=== PATIENT | male | born 1975 | race Caucasian/White ===

== ENCOUNTER 2017-11-26 23:47 | Emergency (ER) | payer SELFPAY ==
[~2017-11-26] VITALS: Ht 182.9 cm; Wt 78.0 kg
[~2017-11-26 23:47] MED LIST: BACT800T5 PO; CEPH500C3 PO; DILA8TAB4 PO; DOXY100T PO; OXYC30TA PO; PROM25SU8 PO; SOMA350T PO; SULF1TAB47 PO; TERB1%T TOP; XANA2TAB2 PO
[2017-11-26] MEDS ORDERED: SODIUM CHLOR 0.9% 1000 ML INJ 1,000 ML IV SCH ×2 (23:50)
[2017-11-26 23:51] VITALS: BP 123/72; PULSE 104; RESP 22; TEMP 98.2; O2SAT 100
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
[2017-11-27] MEDS ORDERED: LORazepam 2 MG/ML VIAL IV PUSH ONE
[2017-11-27 00:20] LABS: AUTOMATED NEUTROPHIL # 10.8 TH/MM3 (1.8-7.7); BASOPHIL # 0.1 TH/MM3 (0-0.2); BASOPHIL % 0.5 % (0.0-2.0); EOSINOPHIL % 0.1 % (0.0-4.0); HEMATOCRIT 38.9 % (39.0-51.0); HEMOGLOBIN 13.5 GM/DL (13.0-17.0); LYMPH % 14.6 % (9.0-44.0); LYMPHOCYTE # 2.1 TH/MM3 (1.0-4.8); MEAN CORPUSCULAR HEMOGLOBIN 31.1 PG (27.0-34.0); MEAN CORPUSCULAR HGB CONC 34.6 % (32.0-36.0); MEAN PLATELET VOLUME 7.7 FL (7.0-11.0); MONO % 10.9 % (0.0-8.0); MONOCYTE # 1.6 TH/MM3 (0-0.9); NEUT % 73.9 % (16.0-70.0); PLATELET COUNT 293 TH/MM3 (150-450); RED BLOOD COUNT 4.32 MIL/MM3 (4.50-5.90); RED CELL DISTRIBUTION WIDTH 12.9 % (11.6-17.2); WHITE BLOOD COUNT 14.7 TH/MM3 (4.0-11.0)
--- NOTE | 2017-11-27 00:28 | RADRPT ---
EXAM DATE: 11/27/2017 12:26 AM EDT AGE/SEX: 42 years / Male INDICATIONS: Cough and syncopal episode. Possible OD. CLINICAL DATA: This is the patient's initial encounter. Patient reports that signs and symptoms have been present for 1 day and indicates a pain score of Nonresponsive. MEDICAL/SURGICAL HISTORY: Non-responsive. Non-responsive. COMPARISON: No prior exams available for comparison. FINDINGS: A single AP view of the chest demonstrates the lungs to be symmetrically aerated without evidence of mass, infiltrate or effusion. The cardiomediastinal contours are unremarkable. Osseous structures a re intact. CONCLUSION: Negative examination. Electronically signed by: Varinder Abernathy MD 11/27/2017 12:27 AM EDT
[2017-11-27 00:43] LABS: ALBUMIN 3.4 GM/DL (3.4-5.0); ALT (GPT) 154 U/L (12-78); AST (GOT) 196 U/L (15-37); BICARBONATE 19.8 MEQ/L (21.0-32.0); BLOOD UREA NITROGEN 18 MG/DL (7-18); CALCIUM 8.7 MG/DL (8.5-10.1); CHLORIDE 101 MEQ/L (98-107); CREATININE 1.43 MG/DL (0.60-1.30); GLOMERULAR FILTRATION RATE 54 ML/MIN (>89); GLUCOSE,RANDOM 81 MG/DL (74-106); MAGNESIUM 1.6 MG/DL (1.5-2.5); SODIUM (NA) 136 MEQ/L (136-145)
[2017-11-27 00:57] LABS: ALKALINE PHOSPHATASE 89 U/L (45-117); TOTAL BILIRUBIN ADULT 1.6 MG/DL (0.2-1.0); TOTAL PROTEIN 8.3 GM/DL (6.4-8.2)
--- NOTE | 2017-11-27 01:15 | RADRPT ---
EXAM DATE: 11/27/2017 1:07 AM EDT AGE/SEX: 42 years / Male INDICATIONS: Cephalgia after drug use. CLINICAL DATA: This is the patient's initial encounter. Patient reports that signs and symptoms have been present for 1 day and indicates a pain score of 5/10. MEDICAL/SURGICAL HISTORY: None. None. RADIATION DOSE: 56.35 CTDI (mGy) COMPARISON: No prior exams available for comparison. TECHNIQUE: CT of the head without contrast. Using automated exposure control and adjustment of the mA and/or kV according to patient size, radiation dose was kept as low as reasonably achievable to ob tain optimal diagnostic quality images. DICOM format image data is available electronically for revi ew and comparison. FINDINGS: Cerebrum: The ventricles are normal for age. No evidence of midline shift, mass lesion, hemorrhage or acute infarction. No extraaxial fluid collections are seen. Posterior Fossa: The cerebellum and brainstem are intact. The 4th ventricle is midline. The cerebe llopontine angle is unremarkable. Extracranial: The visualized portion of the orbits is intact. Skull: The calvaria is intact. No evidence of skull fracture. Some fluid in the right mastoidal air cells CONCLUSION: 1. Negative CT Head non contrast except for trace fluid in the right mastoid air cells. Electronically signed by: Varinder Abernathy MD 11/27/2017 1:13 AM EDT
[2017-11-27 01:28] VITALS: BP 114/60; PULSE 93; RESP 20; O2SAT 98
[2017-11-27 06:32] VITALS: BP 118/64; PULSE 78; RESP 14; O2SAT 97
[2017-11-27 08:57] VITALS: BP 116/69
--- NOTE | 2017-11-27 18:27 | EKG ---
Date Performed: 11/27/2017 Time Performed: 00:14:34 PTAGE: 42 years EKG: Sinus rhythm WITH SHORT AR INTERVAL BORDERLINE ECG Since the PREVIOUS TRACING , no significant change noted PREVIOUS TRACIN06/04/2014 03.36 DOCTOR: Franchesca Choi Interpretating Date/Time 11/27/2017 18:25:12
== END 2017-11-27 08:59 | disposition home or self-care (01) ==
LOC: NEPD 23:47
DX: E86.0 Dehydration (principal); N17.9 Acute kidney failure, unspecified; M62.82 Rhabdomyolysis; T44.905A Adverse effect of unspecified drugs primarily affecting the autonomic nervous system, initial encounter; R94.31 Abnormal electrocardiogram [ECG] [EKG]; R00.0 Tachycardia, unspecified; R51 Headache; Y04.0XXA Assault by unarmed brawl or fight, initial encounter; F12.90 Cannabis use, unspecified, uncomplicated
CPT/HCPCS: 70450; 71045; 80053; 82550; 82552; 83605; 83735; 85025; 93005; 96361; 96374; 99285; J2060; J7030

== ENCOUNTER 2017-12-02 06:56 | Emergency (ER) | payer SELFPAY ==
[~2017-12-02] VITALS: Ht 182.9 cm; Wt 90.9 kg
[2017-12-02 07:00] VITALS: BP 131/65; PULSE 90; RESP 16; TEMP 98.6; O2SAT 98
[2017-12-02] MEDS ORDERED: BACT800T5 PO (07:24)
[2017-12-02] MEDS ORDERED: CEPH-460 PO (07:24)
[2017-12-02] MEDS ORDERED: IBUP1TAB7 PO (07:24)
--- NOTE | 2017-12-02 07:24 | PD ---
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 He also notes several other small pustular areas across the skin. He endorses chills, has not measured a fever at home. He endorses nausea, denies vomiting. He denies history of MRSA. He denies chronic health problems, takes no daily medications. No treatment attempted at home. PFSH Past Medical History Autoimmune Disease: No Anxiety: No Depression: No Heart Rhythm Problems: No Cancer: No High Cholesterol: No Chemotherapy: No Chest Pain: Yes Congestive Heart Failure: No Diabetes: No Diminished Hearing: No Endocrine: No Genitourinary: No Immune Disorder: No Musculoskeletal: No Neurologic: No Psychiatric: No Reproductive: No Respiratory: No Immunizations Current: Yes Radiation Therapy: No Sickle Cell Disease: No Thyroid Disease: No Past Surgical History Pacemaker: No Social History Alcohol Use: Yes Tobacco Use: Yes Substance Use: Yes (MARIJUANA) Allergies-Medications (Allergen,Severity, Reaction): Coded Allergies: *MDRO Multi-Drug Resistant Organism (Verified Adverse Reaction, Unknown, ) MRSA hand wound 01/2015. Reported Meds & Prescriptions Reported Meds & Active Scripts Active Ibuprofen 800 Mg Tab 800 Mg PO Q8H PRN Keflex (Cephalexin) 500 Mg Cap 500 Mg PO Q6H 7 Days Bactrim DS (Sulfamethoxazole-Trimethoprim) 800-160 Mg Tab 1 Tab PO BID Review of Systems Except as stated in HPI: all other systems reviewed are Neg Physical Exam Narrative GENERAL: Well-nourished, well-developed white male no acute distress. SKIN: Focused skin assessment warm/dry. Multiple tattoos noted. SKIN: There is an indurated area in the right axilla which measures about 3 cm in diameter. It is fluctuant but there is no pointing or drainage. There is a zone of inflammation around it but no lymphangitis. HEAD: Normocephalic. EYES: No scleral icterus. No injection or drainage. NECK: Supple, trachea midline. No JVD or lymphadenopathy. CARDIOVASCULAR: Regular rate and rhythm without murmurs, gallops, or rubs. RESPIRATORY: Breath sounds equal bilaterally. No accessory muscle use. GASTROINTESTINAL: Abdomen soft, non-tender, nondistended. MUSCULOSKELETAL: No cyanosis, or edema. BACK: Nontender without obvious deformity. No CVA tenderness. Data Data Last Documented VS Vital Signs Date Time Temp Pulse Resp B/P (MAP) Pulse Ox O2 Delivery O2 Flow Rate FiO2 12/02/17 07:00 98.6 90 16 131/65 (87) 98 Orders Orders Wound Culture And Gram Stain (12/02/17 07:20) Ibuprofen (Motrin) (12/02/17 07:30) Lidocaine 1% Inj (50 Ml) (Xylocaine 1% I (12/02/17 07:30) Ed Discharge Order (12/02/17 08:00) [facility] Medical Decision Making Medical Screen Exam Complete: Yes Emergency Medical Condition: Yes Differential Diagnosis Furuncle versus carbuncle versus abscess versus cellulitis versus MRSA versus other Narrative Course 42-year-old male with history of IVDA presents to the ED for evaluation of 6 day history of abscess in the right axilla. Patient afebrile on arrival. Exam consistent with abscess. Reviewed the patient's record, he has a history of MRSA. I&D abscess was performed. Please see my procedure note for details. Patient's prescribed Bactrim, Keflex, ibuprofen. He was given detailed wound care instructions, instructed to return to the ED in 2 days for follow-up. He indicated understanding of the instructions and is agreeable to care plan. He stable and discharged home. Procedures Procedure Narrative INCISION AND DRAINAGE OF ABSCESS: The area was prepped and was sterilely draped. A subcutaneous wheal of 1 % Xylocaine with a total number 3 mL was used to anesthetize the area properly. A number 11 scalpel was used to make a 1 -cm incision across the area of the abscess. The abscess was drained, complex loculations were broken down, and irrigated with normal saline. Cultures were obtained. Sterile dressing applied. Patient advised to return for wound recheck two days. Diagnosis Primary Impression: Abscess of right axilla Referrals: [facility] Additional Instructions: Rest, hydrate. Do not change the dressing for 24-48 hours. Take the antibiotics as they are prescribed, even if your symptoms resolved. 800 mg ibuprofen up to 3 times a day, as needed for pain. Warm, moist compresses applied to the area a few times a day for 10-15 minutes may also help to reduce her symptoms. Return to the ED in 2 days for packing removal and wound evaluation Follow-up with the [facility]. Return to the ED for any urgent or emergent medical condition. Med/Other Pt SpecificInfo: Prescription(s) given Scripts Ibuprofen (Ibuprofen) 800 Mg Tab 800 MG PO Q8H Y for Pain/Inflammation, #15 TAB 0 Refills Prov: Freda Jin DO 12/02/17 Cephalexin (Keflex) 500 Mg Cap 500 MG PO Q6H for Infection for 7 Days, #28 CAP 0 Refills Prov: Freda Jin DO 12/02/17 Sulfamethoxazole-Trimethoprim (Bactrim DS) 800-160 Mg Tab 1 TAB PO BID for Infection, #14 TAB 0 Refills Prov: Freda Jin DO 12/02/17 Disposition: 01 DISCHARGE HOME Condition: Stable Kadi Paniagua Dec 02, 2017 07:24
[2017-12-02] MEDS ORDERED: LIDOCAINE HCL 1% 50 ML VIAL INFIL ONE (07:30)
[2017-12-02] MEDS ORDERED: IBUPROFEN 800 MG TAB PO ONE (07:30)
== END 2017-12-02 08:18 | disposition home or self-care (01) ==
LOC: NEPD 06:56
DX: L02.411 Cutaneous abscess of right axilla (principal); B95.62 Methicillin resistant Staphylococcus aureus infection as the cause of diseases classified elsewhere; R68.83 Chills (without fever); Z86.14 Personal history of Methicillin resistant Staphylococcus aureus infection; Z72.0 Tobacco use
CPT/HCPCS: 10060; 86403; 87070; 87186

== ENCOUNTER 2017-12-18 15:47 | Observation (INO) ==
[2017-12-18] MEDS ORDERED: Vancomycin Inj 1,000 MG in Sodium Chlor 0.9% Inj 250 ML IV.SIG ONE (22:41)
--- NOTE | 2017-12-18 22:48 | ED ---
HPI General Chief complaint: Skin/Abscess/Foreign Body Stated complaint: Recheck underarm pain Time Seen by Provider: 12/18/17 22:03 Source: patient History of Present Illness MD complaint: abscess/boil and lesion Onset (ago): day(s) Location: LUE, RUE, L hand, R hand, LLE and RLE Severity: moderate Severity scale (1-10): 8 Quality: aching, dull and constant Pain Consistency: constant Relieving factors: none Associated symptoms: denies other symptoms Treatments prior to arrival: antibiotic (Patient was given an antibiotic prescription when he had an I&D of an abscess in his axilla on the right which was MRSA positive however patient says the prescription got wet he did not fill it and he is homeless and has no money at this time to fill the antibiotic) Related Data Home Medications Medication Instructions Recorded Confirmed No Known Home Medications 12/18/17 12/18/17 Allergies Allergy/AdvReac Type Severity Reaction Status Date / Time *MDRO Multi-Drug Resistant AdvReac Unknown Uncoded 11/26/17 23:50 Organism Review of Systems ROS Unobtainable All other systems reviewed negative except as stated in HPI [facility] Social History Social History Substance History: Active Abuse Second Hand Smoke Exposure: No Smoking Status: Former smoker How Often Do You Have a Drink Containing Alcohol: Never Recent Travel [facility] within the Last 8 Weeks: No Recent Out of Country Travel within the Last 8 Weeks: No Substance Abuse Detail Methamphetamine: Substance Use Status: Early Remission Route Used Substance Abuse: Intravenously Substance Frequency: DAILY Reason for Use: Fit In Immunization History Tetanus Immunization: Unsure Hx Influenza Vaccine This Season: No Exam Narrative Exam Narrative: GENERAL: pt has scab to scott and multiple lumps and scabs to arms and legs SKIN: Focused skin assessment warm/dry. Multiple abscess and lumps and swelling to the forearms and legs HEAD: Atraumatic. Normocephalic. EYES: Pupils equal and round. No scleral icterus. No injection or drainage. ENT: No nasal bleeding or discharge. Mucous membranes pink and moist. NECK: Trachea midline. No JVD. CARDIOVASCULAR: Regular rate and rhythm. No murmur appreciated. RESPIRATORY: No accessory muscle use. Clear to auscultation. Breath sounds equal bilaterally. GASTROINTESTINAL: Abdomen soft, non-tender, nondistended. Hepatic and splenic margins not palpable. MUSCULOSKELETAL: No obvious deformities. No clubbing. No cyanosis. No edema. NEUROLOGICAL: Awake and alert. No obvious cranial nerve deficits. Motor grossly within normal limits. Normal speech. PSYCHIATRIC: Appropriate mood and affect; insight and judgment normal. Course Hospital Course: I evaluated patient he has MRSA positive from a recent I&D I give him Vanco and Levaquin as I review the microbiology showing the resistance of the MRSA including ceftriaxone and penicillins and beta-lactamase Levaquin and Vanco will cover I admit him for further eval wound care possible ID for his skin infections Initial Documented Vital Signs Temperature 98.4 F 12/18/17 15:59 Pulse Rate 87 12/18/17 15:59 Respiratory Rate 16 12/18/17 15:59 Blood Pressure 126/74 12/18/17 15:59 Pulse Oximetry 98 12/18/17 15:59 Last Documented Vital Signs Temperature 98.4 F 12/18/17 15:59 Pulse Rate 83 12/19/17 02:10 Respiratory Rate 14 12/19/17 02:10 Blood Pressure 127/66 12/19/17 02:10 Pulse Oximetry 100 12/19/17 02:10 Medical Decision Making Lab Data Result diagrams: 12/18/17 23:10 12/18/17 23:10 Lab Results 12/18/17 12/18/17 12/19/17 Range/Units 23:10 23:10 01:36 WBC 6.6 (4.0-11.0) th/mm3 RBC 3.68 L (4.50-5.90) mil/mm3 Hgb 11.5 L (13.0-17.0) gm/dL Hct 33.7 L (39.0-51.0) % MCV 91.7 (80.0-100.0) fL MCH 31.3 (27.0-34.0) pg MCHC 34.2 (32.0-36.0) % RDW 13.4 (11.6-17.2) % Plt Count 154 (150-450) th/mm3 MPV 7.6 (7.0-11.0) fL Neut % (Auto) 59.7 (16.0-70.0) % Lymph % (Auto) 24.3 (9.0-44.0) % [place] % (Auto) 13.6 H (0.0-8.0) % Eos % (Auto) 1.8 (0.0-4.0) % Baso % (Auto) 0.6 (0.0-2.0) % Neut # (Auto) 3.9 (1.8-7.7) th/mm3 Lymph # (Auto) 1.6 (1.0-4.8) th/mm3 [place] # (Auto) 0.9 (0.0-0.9) th/mm3 Eos # (Auto) 0.1 (0.0-0.4) th/mm3 Baso # (Auto) 0.0 (0.0-0.2) th/mm3 WBC Differential . Differential Comment Auto diff final Sodium 136 (136-145) meq/L Potassium 3.8 (3.5-5.1) meq/L Chloride 100 (98-107) meq/L Carbon Dioxide 28.7 (21.0-32.0) meq/L Anion Gap 7 (5-15) meq/L BUN 12 (7-18) mg/dL Creatinine 0.93 (0.60-1.30) mg/dL Random Glucose 114 H (74-106) mg/dL Calcium 8.6 (8.5-10.1) mg/dL Total Bilirubin 2.9 H (0.2-1.0) mg/dL AST 1704 H (15-37) U/L ALT 1364 H (12-78) U/L Alkaline Phosphatase 208 H (45-117) U/L Total Protein 7.8 (6.4-8.2) g/dL Albumin 2.7 L (3.4-5.0) g/dL Urine Color (Yellw/Straw) Urine Clarity (Clear) Urine pH (5.0-8.5) Ur Specific [place] (1.002-1.035) Urine Protein (Neg-Trace) mg/dL Urine Glucose (UA) (Negative) mg/dL Urine Ketones (Negative) mg/dL Urine Occult Blood (Negative) Urine Nitrate (Negative) Urine Bilirubin (Negative) Urine Ictotest (Negative) Urine Urobilinogen (Less than 2) mg/dL Ur Leukocyte Esterase (Negative) Urine RBC (0-3) /hpf Urine WBC (0-5) /hpf Ur Squamous Epith Cells (0-5) /hpf Urine Mucus (Occasional) /lpf Micro UA Comment Urine Culture Comments Urine Opiates Screen Pos H (Neg) Ur Barbiturates Screen Neg (Neg) Ur Amphetamines Screen Pos H (Neg) U Benzodiazepines Scrn Neg (Neg) Urine Cocaine Screen Neg (Neg) U Cannabinoids Screen Pos H (Neg) 12/19/17 Range/Units 01:36 WBC (4.0-11.0) th/mm3 RBC (4.50-5.90) mil/mm3 Hgb (13.0-17.0) gm/dL Hct (39.0-51.0) % MCV (80.0-100.0) fL MCH (27.0-34.0) pg MCHC (32.0-36.0) % RDW (11.6-17.2) % Plt Count (150-450) th/mm3 MPV (7.0-11.0) fL Neut % (Auto) (16.0-70.0) % Lymph % (Auto) (9.0-44.0) % [place] % (Auto) (0.0-8.0) % Eos % (Auto) (0.0-4.0) % Baso % (Auto) (0.0-2.0) % Neut # (Auto) (1.8-7.7) th/mm3 Lymph # (Auto) (1.0-4.8) th/mm3 [place] # (Auto) (0.0-0.9) th/mm3 Eos # (Auto) (0.0-0.4) th/mm3 Baso # (Auto) (0.0-0.2) th/mm3 WBC Differential Differential Comment Sodium (136-145) meq/L Potassium (3.5-5.1) meq/L Chloride (98-107) meq/L Carbon Dioxide (21.0-32.0) meq/L Anion Gap (5-15) meq/L BUN (7-18) mg/dL Creatinine (0.60-1.30) mg/dL Random Glucose (74-106) mg/dL Calcium (8.5-10.1) mg/dL Total Bilirubin (0.2-1.0) mg/dL AST (15-37) U/L ALT (12-78) U/L Alkaline Phosphatase (45-117) U/L Total Protein (6.4-8.2) g/dL Albumin (3.4-5.0) g/dL Urine Color Melani (Yellw/Straw) Urine Clarity Clear (Clear) Urine pH 5.0 (5.0-8.5) Ur Specific [place] 1.026 (1.002-1.035) Urine Protein 30 H (Neg-Trace) mg/dL Urine Glucose (UA) Negative (Negative) mg/dL Urine Ketones Negative (Negative) mg/dL Urine Occult Blood Negative (Negative) Urine Nitrate Negative (Negative) Urine Bilirubin Small H (Negative) Urine Ictotest Positive H (Negative) Urine Urobilinogen 4 or greater (Less than 2) mg/dL Ur Leukocyte Esterase Negative (Negative) Urine RBC 1 (0-3) /hpf Urine WBC 1 (0-5) /hpf Ur Squamous Epith Cells <1 (0-5) /hpf Urine Mucus Few H (Occasional) /lpf Micro UA Comment Culture not ind Urine Culture Comments Culture not ind Urine Opiates Screen (Neg) Ur Barbiturates Screen (Neg) Ur Amphetamines Screen (Neg) U Benzodiazepines Scrn (Neg) Urine Cocaine Screen (Neg) U Cannabinoids Screen (Neg) Discharge Plan Discharge Disposition Patient Disposition: 30 Still Patient Discharge Details Diagnosis: Cellulitis and abscess of leg Physicians Team ED Provider: Jhon Knott Primary Care Provider: Primary Care Chelsea Powell Attending Provider: Reshma Srinivasan Status ED Status: Admitted Observation Patient
[2017-12-18 23:34] LABS: Baso % (Auto) 0.6 % (0.0-2.0); Eos # (Auto) 0.1 th/mm3 (0.0-0.4); Eos % (Auto) 1.8 % (0.0-4.0); Hematocrit 33.7 % (39.0-51.0); Hemoglobin 11.5 gm/dL (13.0-17.0); Lymph # (Auto) 1.6 th/mm3 (1.0-4.8); Lymph % (Auto) 24.3 % (9.0-44.0); Mean Corpuscular HGB Conc 34.2 % (32.0-36.0); Mean Corpuscular Hemoglobin 31.3 pg (27.0-34.0); Mean Corpuscular Volume 91.7 fL (80.0-100.0); Mean Platelet Volume 7.6 fL (7.0-11.0); Mono # (Auto) 0.9 th/mm3 (0.0-0.9); Mono % (Auto) 13.6 % (0.0-8.0); Neut # (Auto) 3.9 th/mm3 (1.8-7.7); Neut % (Auto) 59.7 % (16.0-70.0); Platelet Count 154 th/mm3 (150-450); Red Blood Count 3.68 mil/mm3 (4.50-5.90); Red Cell Distribution Width 13.4 % (11.6-17.2); White Blood Count 6.6 th/mm3 (4.0-11.0)
[2017-12-18 23:48] LABS: Albumin 2.7 g/dL (3.4-5.0); Anion Gap 7 meq/L (5-15); Blood Urea Nitrogen 12 mg/dL (7-18); Calcium 8.6 mg/dL (8.5-10.1); Carbon Dioxide 28.7 meq/L (21.0-32.0); Chloride 100 meq/L (98-107); Glucose,Random 114 mg/dL (74-106); Potassium 3.8 meq/L (3.5-5.1); Sodium 136 meq/L (136-145)
[2017-12-18 23:55] LABS: Alanine Aminotransferase 1364 U/L (12-78); Alkaline Phosphatase 208 U/L (45-117); Aspartate Aminotransferase 1704 U/L (15-37); Total Protein 7.8 g/dL (6.4-8.2)
[2017-12-19] MEDS ORDERED: Bisacodyl 10 MG Supp RECTAL PRN (00:51)
[2017-12-19] MEDS ORDERED: Vancomycin Consult Pharmacy 1 EACH OTHER SCH (01:00)
[2017-12-19] MEDS: Sod Chloride 0.9% Inj 1,000 ML IV.CONT SCH ×2 (01:33→16:28)
--- NOTE | 2017-12-19 01:49 | P.HPIM ---
History of Present Illness Primary Care Physician: No Primary Care Physician History of Present Illness: This is a 42-year-old male with a PMH of IVDU who presented to the ER w/ multiple abscesses. Previous ER presentation for same on 12/02/17, s/p I&D w/ cultures +MRSA, d/c'd w/ Bactrim and Keflex however non-compliant w/ antibiotics. States he [facility] and relapsed, started using IV drugs, noted RUE abscess after injecting, followed by multiple other abscesses. On arrival, BP 136/80, HR 83, O2 sat 95% on RA, Afebrile. CBC essentially unremarkable. Chemistry unremarkable except for elevated LFTs, AST 1704, ALT 1364, ALP 208, increased in comparison to previous labs from 11/27/2017. S/p Vanc/Levaquin in ER. - Diagnosis (1) Abscess (2) IVDU (intravenous drug user) (3) Elevated LFTs Inpatient Certification: I certify that the inpatient services were ordered in accordance with Medicare regulations governing the order. This includes certification that hospital inpatient services are reasonable and necessary and in the case of services not specified as inpatient-only under 42 CFR 419.22(n), that they are appropriately provided as inpatient services in accordance to with the 2-midnight benchmark under 43 CFR 412.3(e) Review of Systems All other systems reviewed negative except as stated in HPI PMFSH - History History Provided By: Patient - Tobacco History Second Hand Smoke Exposure: No Smoking Status: Former smoker - Alcohol History How Often Do You Have a Drink Containing Alcohol: Never - Substance Use History Substance History: 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 Route Used: Intravenously Frequency: DAILY Reason for Use: Fit In - Travel History Recent Travel in the [place] Within the Last 8 Weeks: No Recent Travel Out of the Country Within the Last 8 Weeks: No - Immunization History Tetanus Immunization: Unsure Hx Influenza Vaccine This Season: No Medications and Allergies Active Medications: Active Medications Al Hydroxide/Mg Hydroxide (Milk Of Magnmariaelena Liq) 30 ml PO Q12H PRN PRN Reason: Mild Constipation Bisacodyl (Dulcolax Supp) 10 mg RECTAL DAILY PRN PRN Reason: SEVERE CONSITIPATION Cefepime HCl 1,000 mg/ Sodium (Chloride) 100 mls @ 200 mls/hr IV.SIG Q12H SHANELL Sodium Chloride (Ns Inj) 1,000 mls @ 100 mls/hr IV.CONT .Q10H [facility] Last Admin: 12/19/17 01:33 Dose: 100 mls/hr Pharmacy Profile Note (Vancomycin Consult Pharmacy) 0 mls @ 0 mls/hr OTHER UNSCH [facility] Lactulose (Lactulose Liq) 30 ml PO DAILY PRN PRN Reason: SEVERE CONSITIPATION Lorazepam (Ativan Inj) 1 mg IV.PUSH Q2H PRN PRN Reason: WITHDRAWAL/AGITATION Metoclopramide HCl (Reglan Inj) 5 mg IV.PUSH Q6HR PRN; Protocol PRN Reason: NAUSEA OR VOMITING Senna/Docusate Sodium (Padmini-Colace) 1 tab PO BID [facility] Sennosides (Senokot) 17.2 mg PO Q12H PRN PRN Reason: Moderate Constipation Allergies Allergy/AdvReac Type Severity Reaction Status Date / Time *MDRO Multi-Drug Resistant AdvReac Unknown Uncoded 11/26/17 23:50 Organism Home Medications Medication Instructions Recorded Confirmed Type No Known Home Medications 12/18/17 12/18/17 History Exam Vital signs: Vital Signs 12/18/17 15:59 12/18/17 21:08 12/18/17 22:00 Temperature 98.4 F Pulse Rate 87 83 76 Respiratory Rate 16 16 16 Blood Pressure 126/74 136/80 122/61 Pulse Oximetry 98 95 98 12/19/17 00:00 12/19/17 01:00 Temperature Pulse Rate 96 H 84 Respiratory Rate 24 14 Blood Pressure 117/55 L 103/62 Pulse Oximetry 97 98 Intake & Output 12/18/17 12/18/17 12/19/17 06:59 18:59 06:59 Intake Total 400 / 400 Balance 400 / 400 Weight 83.915 kg Intake: IV 400 / 400 Levaquin 750 mg Premix Inj 150 150 / 150 ML @ 100 mls/hr IV.SIG ONCE ONE Rx#:[id number] Vancomycin Inj 1,000 MG In NS 250 / 250 Inj 250 ML @ 250 mls/hr IV.SIG ONCE ONE Rx#:[id number] Narrative: PE: GENERAL: Young white male in no acute distress. HEENT: PERRLA, EOMI. No scleral icterus or conjunctival pallor. No lid lag or facial droop. CARDIOVASCULAR: Regular rate and rhythm. No obvious murmurs to auscultation. No chest tenderness to palpation. RESPIRATORY: No obvious rhonchi or wheezing. Clear to auscultation. Breath sounds equal bilaterally. GASTROINTESTINAL: Abdomen soft, non-tender, nondistended. BS normal. MUSCULOSKELETAL: Extremities without clubbing, cyanosis, or edema. No obvious deformities. Multiple abscess to bilateral extremities NEUROLOGICAL: Awake, alert and oriented x4. No focal neurologic deficits. Moving both upper and lower extremities spontaneously. Results - Labs CBC & Chem 7: 12/18/17 23:10 12/18/17 23:10 Labs: Short CBC 12/18/17 Range/Units 23:10 WBC 6.6 (4.0-11.0) th/mm3 Hgb 11.5 L (13.0-17.0) gm/dL Hct 33.7 L (39.0-51.0) % Plt Count 154 (150-450) th/mm3 BMP 12/18/17 23:10 Sodium 136 Potassium 3.8 Chloride 100 Carbon Dioxide 28.7 BUN 12 Creatinine 0.93 Calcium 8.6 Liver Function 12/18/17 Range/Units 23:10 Total Bilirubin 2.9 H (0.2-1.0) mg/dL AST 1704 H (15-37) U/L ALT 1364 H (12-78) U/L Alkaline Phosphatase 208 H (45-117) U/L Albumin 2.7 L (3.4-5.0) g/dL Caprini VTE Risk Assessment Caprini VTE Risk Assessment: No/Low Risk (score <= 1) Caprini Risk Assessment Model: Point Value = 1 Point Value = 2 Point Value = 3 Point Value = 5 Age 41-60 Minor surgery BMI > 25 kg/m2 Swollen legs Varicose veins or History of unexplained or recurrent spontaneous Oral contraceptives or hormone replacement Sepsis (< 1 month) Serious lung disease, including pneumonia (< 1 month) Abnormal pulmonary function Acute myocardial infarction Congestive heart failure (< 1 month) History of inflammatory bowel disease Medical patient at bed rest Age 61-74 Arthroscopic surgery Major open surgery (> 45 min) Laparoscopic surgery (> 45 min) Malignancy Confined to bed (> 72 hours) Immobilizing plaster cast Central venous access Age >= 75 History of VTE Family history of VTE Factor V Leiden Prothrombin [id number] Lupus anticoagulant Anticardiolipin antibodies Elevated serum homocysteine Heparin-induced thrombocytopenia Other congenital or acquired thrombophilia Stroke (< 1 month) Elective arthroplasty Hip, pelvis, or leg fracture Acute spinal cord injury (< 1 month) Prophylaxis Regimen: Total Risk Factor Score Risk Level Prophylaxis Regimen 0-1 Low Early ambulation 2 Moderate Order ONE of the following: *Sequential Compression Device (SCD) *Heparin 5000 units SQ BID 3-4 Higher Order ONE of the following medications: *Heparin 5000 units SQ TID *Enoxaparin/Lovenox 40 mg SQ daily (WT < 150 kg, CrCl > 30 mL/min) *Enoxaparin/Lovenox 30 mg SQ daily (WT < 150 kg, CrCl > 10-29 mL/min) *Enoxaparin/Lovenox 30 mg SQ BID (WT < 150 kg, CrCl > 30 mL/min) AND/OR *Sequential Compression Device (SCD) 5 or more Highest Order ONE of the following medications: *Heparin 5000 units SQ TID (Preferred with Epidurals) *Enoxaparin/Lovenox 40 mg SQ daily (WT < 150 kg, CrCl > 30 mL/min) *Enoxaparin/Lovenox 30 mg SQ daily (WT < 150 kg, CrCl > 10-29 mL/min) *Enoxaparin/Lovenox 30 mg SQ BID (WT < 150 kg, CrCl > 30 mL/min) AND *Sequential Compression Device (SCD) Assessment and Plan - Assessment (1) Abscess Code(s): L02.91 - Cutaneous abscess, unspecified Status: Acute (2) IVDU (intravenous drug user) Code(s): F19.90 - Other psychoactive substance use, unspecified, uncomplicated Status: Acute (3) Elevated LFTs Code(s): R94.5 - Abnormal results of liver function studies Status: Acute - Plan A/P: 1. Abscess: multiple abscesses bilateral extremities, h/o MRSA s/p I&D 11/26/17 , continue w/ IV Vanc, repeat labs in am 2. Elevated LFTs: increased in comparison to previous labs from 11/26/17, likely secondary to drug abuse, check Tylenol level, repeat labs in am. 3. IVDU: Ativan prn for withdrawal/agitation 4. DVT Prophylaxis: SCD/Teds 5. Social work for d/c planning as needed 6. Case discussed w/ ER physician at length, labs/records/imaging reviewed by me.
[2017-12-19 01:54] LABS: Bilirubin,Urine Small (Negative); Clarity,Urine Clear (Clear); Color,Urine Amber (Yellw/Straw); Glucose,Urine (UA) Negative (Negative); Ictotest,Urine Positive (Negative); Leukocyte Esterase,Urine Negative (Negative); Mucus,Urine Few /lpf (Occasional); Nitrite,Urine Negative (Negative); Specific Gravity,Urine 1.026 (1.002-1.035); Squamous Epithelial Cell,Urine <1 /hpf (0-5); Urobilinogen,Urine 4 or Greater mg/dL (Less than 2)
[2017-12-19 02:00] LABS: Amphetamine Screen,Urine Pos (Neg); Barbiturate Screen,Urine Neg (Neg); Cannabinoid Screen,Urine Pos (Neg); Cocaine Screen,Urine Neg (Neg)
[2017-12-19 02:02] LABS: Opiate Screen,Urine Pos (Neg)
[2017-12-19 06:37] LABS: Baso % (Auto) 0.6 % (0.0-2.0); Eos # (Auto) 0.1 th/mm3 (0.0-0.4); Eos % (Auto) 1.4 % (0.0-4.0); Hematocrit 34.8 % (39.0-51.0); Hemoglobin 11.7 gm/dL (13.0-17.0); Lymph # (Auto) 1.1 th/mm3 (1.0-4.8); Lymph % (Auto) 17.5 % (9.0-44.0); Mean Corpuscular HGB Conc 33.6 % (32.0-36.0); Mean Corpuscular Hemoglobin 31.2 pg (27.0-34.0); Mean Corpuscular Volume 92.9 fL (80.0-100.0); Mean Platelet Volume 8.2 fL (7.0-11.0); Mono # (Auto) 0.8 th/mm3 (0.0-0.9); Mono % (Auto) 12.2 % (0.0-8.0); Neut # (Auto) 4.2 th/mm3 (1.8-7.7); Neut % (Auto) 68.3 % (16.0-70.0); Platelet Count 144 th/mm3 (150-450); Red Blood Count 3.75 mil/mm3 (4.50-5.90); Red Cell Distribution Width 13.6 % (11.6-17.2); White Blood Count 6.2 th/mm3 (4.0-11.0)
[2017-12-19 06:58] LABS: Albumin 2.4 g/dL (3.4-5.0); Anion Gap 10 meq/L (5-15); Blood Urea Nitrogen 10 mg/dL (7-18); Calcium 8.1 mg/dL (8.5-10.1); Carbon Dioxide 25.5 meq/L (21.0-32.0); Chloride 102 meq/L (98-107); Glucose,Random 77 mg/dL (74-106); Potassium 3.4 meq/L (3.5-5.1); Sodium 137 meq/L (136-145)
[2017-12-19 07:05] LABS: Alanine Aminotransferase 1217 U/L (12-78); Alkaline Phosphatase 202 U/L (45-117); Aspartate Aminotransferase 1535 U/L (15-37); Total Protein 7.3 g/dL (6.4-8.2)
[2017-12-19] MEDS: Senna/Docusate Sodium 8.6/50 MG Tablet PO SCH ×2 (09:05→23:10)
--- NOTE | 2017-12-19 11:01 | CT ---
EXAM DATE: 12/19/2017 10:12 AM EDT AGE/SEX: 42 years / Male INDICATIONS: Abscess. Pus filled lesions on right forearm. Fever and chills. CLINICAL DATA: This is the patient's initial encounter. Patient reports that signs and symptoms have been present for 3 days and indicates a pain score of 3/10. MEDICAL/SURGICAL HISTORY: . IV drug user. None. RADIATION DOSE: 3.91 CTDI (mGy) COMPARISON: No prior exams available for comparison. TECHNIQUE: Multiple contiguous axial images were acquired using a multi-row detector CT scanner afte r the intravenous administration of 68 ml Omnipaque 350 (iohexol) nonionic water-soluble contrast as a single exam dose. Multiplanar reconstruction was performed in the sagittal and coronal planes. Using automated exposure control and adjustment of the mA and/or kV according to patient size, radiat ion dose was kept as low as reasonably achievable to obtain optimal diagnostic quality images. DICOM format image data is available electronically for review and comparison. FINDINGS: Bones: The bony structures about the forefoot are in normal alignment. The metatarsi, phalanges, an d distal tarsal row osseous structures are intact. No fracture is seen. Joints: No significant arthropathy or bony hypertrophy is seen. Soft Tissues: Significant subcutaneous inflammation and fluid collection is identified along anterol ateral aspect of the forearm extending from the elbow to the mid forearm. Fluid accumulation is both subcutaneous and subfascial along the anterior muscle compartment. In the proximal forearm there is a developing fluid collection measuring 1.1 x 2.7 cm in size which is located between the 2 collection s. There is subtle rim enhancement outlining the collection. Dilated venous channels are seen coursin g between the 2 fluid collections. There are no deep muscular fluid collections. Other: No foreign bodies seen. Post Contrast: No other abnormal areas of enhancement are seen in the marrow or soft tissues. CONCLUSION: 1. Superficial and deep cellulitis with fluid accumulation along the anterolateral margin of the pro ximal and mid forearm. 2. 1.1 x 2.7 cm developing fluid collection in the proximal forearm characteristic of a small absces s. 3. No evidence of deep muscular fluid collections. Electronically signed by: Sekou Arambula MD 12/19/2017 10:59 AM EDT
[2017-12-19 12:07] LABS: Hepatitis A IgM Antibody Nonreactive (Nonreactive)
[2017-12-19 12:08] LABS: Hepatitits B Surface Antigen Reactive (Nonreactive)
[2017-12-19] MEDS ORDERED: Vancomycin Inj 1,500 MG in Sodium Chlor 0.9% Inj 500 ML IV.SIG SCH (14:00)
--- NOTE | 2017-12-19 14:27 | MB ---
cc: Salvador Bonner MD DATE: 12/19/2017 REQUESTING PHYSICIAN: Dr. Rosendo Schmidt. REASON FOR CONSULTATION: Multiple abscesses. Right arm abscess. HISTORY OF PRESENT ILLNESS: This is a 42-year-old white male, IV drug user. The patient shoots up IV heroin. He was recently evaluated in this emergency department at the end of November and at that time, he had a positive culture of an arm wound for MRSA. He was given a prescription to take as outpatient. He did not get the prescription filled. He reportedly is homeless. He was out on the streets and continued to use IV heroin. The patient presented again to this emergency department with multiple abscesses of the skin and also pain at his axilla. He had I and D of an abscess at the axilla, which is what was cultured and came back positive for MRSA. The patient has multiple scabbed raised lesions of all the extremities and the area near the elbow at the inner aspect of the forearm is red, tender and swollen. He is very somnolent. He denies chills, nausea, vomiting or other symptoms besides the pain. PAST MEDICAL HISTORY: IV drug abuse. ALLERGIES: NO KNOWN DRUG ALLERGIES. MEDICATIONS: 1. Cefepime. 2. Oxycodone. 3. Padmini-Colace. 4. Vancomycin. SOCIAL HISTORY: Positive IV drug use. Denies tobacco use. Denies alcohol. The patient was recently incarcerated and was released from incarceration in 09/2017. He was incarcerated for 3 years and prior to that was using IV drugs. FAMILY HISTORY: Noncontributory. REVIEW OF SYSTEMS: All systems reviewed and negative except for that stated in history of present illness. Notably, pain in his right arm and right axilla. PHYSICAL EXAMINATION: GENERAL: This is a well-developed male who is in no acute distress, but is rather somnolent. He is disheveled. VITAL SIGNS: Includes temperature of 98.2, blood pressure 92/50, respirations 16, heart rate 76. HEENT: The head is atraumatic. Extraocular movements grossly intact. Pupils reactive to light. No icterus. Oropharynx: Moist mucosa. The lower lip brother has an area of swelling and redness. NECK: Supple without adenopathy. LUNGS: Clear breath sounds which are diminished. HEART: Regular S1, S2. Heart sounds are distant. No murmur is heard. ABDOMEN: Bowel sounds present. Soft, no tenderness appreciated. RECTAL: Not performed. EXTREMITIES: Multiple excoriated skin lesions with surrounding erythema at the arms and legs and an area of swelling with redness at the right inner forearm near the elbow. NEUROLOGIC: No gross focal findings. PSYCHIATRIC: The patient is cooperative and calm. LABORATORY DATA: WBC 6.2, platelets 144, hemoglobin 11.7. Creatinine 0.84, BUN 10, AST 1535, ALT 1217, alkaline phosphatase 202. Toxicology screen is positive for cannabinoids and opiates and amphetamines. Blood culture, no growth at 1 day. Culture of arm abscess has group A beta strep. IMAGING STUDIES: CT of the right forearm that shows superficial and deep cellulitis with fluid accumulation along the anterolateral margin of the proximal mid forearm. Developing fluid collection in the proximal forearm, characteristic of small abscess. No evidence of deep muscular fluid collection. IMPRESSION: 1. Abscess of the right forearm. 2. Multiple skin abscesses. 3. Intravenous drug abuse. Positive culture with group A strep from right forearm and prior positive culture of methicillin resistant Staphylococcus aureus from abscess. I spoke to the lab and was notified that the MRSA previously cultured was sensitive to clindamycin. RECOMMENDATIONS: 1. Discontinue vancomycin. 2. Discontinue cefepime. 3. Begin clindamycin IV. 4. Monitor response. 5. Monitor blood cultures. Thank you for this consultation. The patient's progress will be monitored and further recommendations will be given upon followup if necessary. MD SANJUANA Hills/JUANIS , 01:48 PM , 02:25 PM
--- NOTE | 2017-12-19 15:31 | US ---
EXAM DATE: 12/19/2017 3:16 PM EDT AGE/SEX: 42 years / Male INDICATIONS: Increased lab values. CLINICAL DATA: This is the patient's initial encounter. Patient reports that signs and symptoms have been present for 4 - 6 days and indicates a pain score of 2/10. MEDICAL/SURGICAL HISTORY: . Abdominal pain. None. COMPARISON: No prior exams available for comparison. MEASUREMENTS: Liver:__ 18.0 cm. Common Bile Duct:__ 7mm. Right Kidney:__ cm. FINDINGS: Liver: Normal echotexture without focal lesion or ductal dilatation. Portal Vein: Hepatopedal flow seen in portal vein. Common Duct: Within normal limits in diameter status post cholecystectomy Gallbladder: Surgically absent. Pancreas: The visualized portions are within normal limits Right Kidney: Normal echotexture and cortical thickness. No mass or hydronephrosis. Other: The spleen is markedly enlarged. CONCLUSION: 1. Splenomegaly 2. Status post cholecystectomy. 3. Borderline liver enlargement. 4. No evidence of biliary obstructive disease or acute process. Electronically signed by: Sekou Arambula MD 12/19/2017 3:30 PM EDT
[2017-12-19] MEDS: Clindamycin 900 mg/NS Premix 900 MG/50 ML PIGGYBACK IV.SIG SCH (16:27)
--- NOTE | 2017-12-19 21:04 | MB ---
cc: Lila Lopez MD, Sarah E MD DATE: 12/19/2017 REASON FOR CONSULTATION: Multiple scabs bilateral upper extremities and an area of erythema over the right upper extremity. HISTORY OF PRESENT ILLNESS: Kennedy Yi is a 42-year-old male who admits to heroin use. The patient apparently was in [facility] approximately 2 weeks ago for a right axillary abscess, which was lanced in the emergency room and the patient was given a prescription for antibiotics. He states he did not fill the prescription. The axillary abscess was cultured positive for MRSA. Patient denies paresthesias. Denies significant pain. PAST MEDICAL HISTORY: Unknown except for IV drug use. ALLERGIES: NO KNOWN DRUG ALLERGIES. MEDICATIONS: Oxycodone. SOCIAL HISTORY: The patient admits to heroin use, was recently incarcerated. PHYSICAL EXAMINATION: There are multiple scabs and superficial lesions of bilateral lower extremities with no drainage. There is an area of erythema over the right medial forearm with compartment soft and compressible. No obvious abscess. Sensation intact in the median, ulnar and radial distribution. 2+ radial pulse. Full range of motion with active flexion and extension of the fingers as well as the wrist. 2+ radial pulse. A CT scan ordered, which shows a small fluid collection. ASSESSMENT AND PLAN: A 42-year-old male with erythema over the right forearm. No evidence of drainable abscess at this time. At this time, I recommend continued IV antibiotics per infectious disease and okay to discharge per hand surgery. Please call if any worsening symptoms. At this time, no indication for surgical intervention. Lila Lopez MD [facility]/ , 08:40 PM , 09:03 PM [facility] CENTERPaolo
[2017-12-20] MEDS: Clindamycin 900 mg/NS Premix 900 MG/50 ML PIGGYBACK IV.SIG SCH ×3 (01:32→18:14)
[2017-12-20] MEDS: Sod Chloride 0.9% Inj 1,000 ML IV.CONT SCH ×3 (03:23→22:01)
[2017-12-20] MEDS: Senna/Docusate Sodium 8.6/50 MG Tablet PO SCH ×2 (09:21→22:03)
--- NOTE | 2017-12-20 10:32 | P.PN ---
Subjective Interval history: Follow up for multiple abscesses, worse at RUE, with ongoing IVDU. The patient reports mild improvement of RUE abscess/erythema/edema. Denies fevers/chills. Denies chest pain or shortness of breath. He plans to try to quit using and is arranging to go to a prison house upon discharge. Physical Exam Vital signs: Vital Signs 12/19/17 15:12 12/19/17 20:28 12/20/17 00:05 Temperature 98.4 F 99.0 F 98.6 F Pulse Rate 71 72 71 Respiratory Rate 20 18 18 Blood Pressure 107/60 120/62 117/56 L Pulse Oximetry 98 97 96 12/20/17 01:06 12/20/17 04:18 12/20/17 07:13 Temperature 98.6 F 97.8 F Pulse Rate 73 64 Respiratory Rate 18 18 16 Blood Pressure 106/58 L 122/65 Pulse Oximetry 97 100 12/20/17 08:00 Temperature Pulse Rate Respiratory Rate 18 Blood Pressure Pulse Oximetry Intake & Output 12/19/17 12/20/17 12/20/17 18:59 06:59 18:59 Intake Total 1000 / 1000 1100 / 1100 240 / 240 Output Total 1000 / 1000 Balance 1000 / 1000 100 / 100 240 / 240 Intake: IV 1000 / 1000 1100 / 1100 NS Inj 1,000 ML @ 100 mls/hr IV 1000 / 1000 1000 / 1000 .CONT .Q10H SHANELL Rx#:[id number] Cleocin 900 mg/NS Premix 900 mg 100 / 100 In 50 ml @ 100 mls/hr IV.SIG Q8H SHANELL Rx#:[id number] Oral 240 / 240 Output: Urine 1000 / 1000 Narrative: GENERAL: Well-nourished, well-developed middle aged male patient in [facility]. SKIN: Warm and dry. RUE forearm with erythematous edematous abscess without fluctuance. Multiple abscesses and ulcerations in various stages of healing throughout all extremities. HEENT: Normocephalic. Atraumatic. Pupils equal and round. Mucous membranes pink and moist. CARDIOVASCULAR: Regular rate and rhythm. No murmur appreciated. RESPIRATORY: No accessory muscle use. Clear to auscultation. Breath sounds equal bilaterally. GASTROINTESTINAL: Abdomen soft, non-tender, nondistended. Normoactive bowel sounds x4. MUSCULOSKELETAL: No obvious deformities. Extremities without clubbing, cyanosis , or edema. NEUROLOGICAL: Awake and alert. No obvious cranial nerve deficits. Motor grossly within normal limits. Moving all extremities spontaneously. Normal speech. PSYCHIATRIC: Calm mood; insight and judgment normal. Results - Labs CBC & Chem 7: 12/19/17 06:03 12/19/17 06:03 Laboratory Results - last 24 hr 12/19/17 12/19/17 12/19/17 06:03 10:25 10:25 Total Creatine Kinase 123 Acetaminophen Less than 2.0 L Hepatitis A IgM Ab Nonreactive Hep Bs Antigen Reactive H Hep B Core IgM Ab Nonreactive Hep C IgG Ab Reactive H Microbiology 12/18/17 23:10 Abscess - Arm Gram Stain - Final 12/18/17 23:10 Abscess - Arm Wound Culture - Preliminary Group A beta (Strep pyogenes) 12/18/17 23:05 Blood - Peripheral Aerobic Blood Culture - Preliminary No growth in 1 day 12/18/17 23:05 Blood - Peripheral Anaerobic Blood Culture - Preliminary No growth in 1 day 12/18/17 23:10 Blood - Peripheral Aerobic Blood Culture - Preliminary No growth in 1 day 12/18/17 23:10 Blood - Peripheral Anaerobic Blood Culture - Preliminary No growth in 1 day - Imaging Impressions Forearm CT 12/19/17 00:00 CONCLUSION: 1. Superficial and deep cellulitis with fluid accumulation along the anterolateral margin of the proximal and mid forearm. 2. 1.1 x 2.7 cm developing fluid collection in the proximal forearm characteristic of a small abscess. 3. No evidence of deep muscular fluid collections. Liver Ultrasound 12/19/17 00:00 CONCLUSION: 1. Splenomegaly 2. Status post cholecystectomy. 3. Borderline liver enlargement. 4. No evidence of biliary obstructive disease or acute process. Assessment and Plan - Assessment (1) Abscess Code(s): L02.91 - Cutaneous abscess, unspecified Status: Acute (2) IVDU (intravenous drug user) Code(s): F19.90 - Other psychoactive substance use, unspecified, uncomplicated Status: Acute (3) Elevated LFTs Code(s): R94.5 - Abnormal results of liver function studies Status: Acute - Plan 42-year-old male with a PMH of IVDU who presented to the ER w/ multiple abscesses. Previous ER presentation for same on 12/02/17, s/p I&D w/ cultures + MRSA, d/c'd w/ Bactrim and Keflex however non-compliant w/ antibiotics. States he recently got out of senior care and relapsed, started using IV drugs, noted RUE abscess after injecting, followed by multiple other abscesses. Abscess: multiple abscesses on all extremities in various stages of healing, new abscess at RUE. -h/o MRSA s/p I&D 11/26/17 -repeat wound culture 12/18 with group a strep -Consult ID, appreciate assistance -given IV Vanco, transitioned to IV clinda on 12/19 per ID -pain control with oxycodone prn Elevated LFTs: increased in comparison to previous labs from 11/26/17, likely secondary to drug abuse, rule out acute hepatitis -hepatitis panel +hepatitis B antigen and hepatitis C ab -tylenol level wnl -monitor CMP -consult gastroenterology IVDU: ongoing -Counseled on cessation, patient plans to go to prison house after discharge -Ativan prn for withdrawal/agitation DVT Prophylaxis: SCD/Teds Discharge Planning: Discharge pending further clinical improvement and clearance from ID and gastroenterology.
[2017-12-21] MEDS ORDERED: Pharmacy Ordered Lab Info OTHER ONE (01:45)
[2017-12-21] MEDS: Clindamycin 900 mg/NS Premix 900 MG/50 ML PIGGYBACK IV.SIG SCH ×2 (01:48→08:52)
[2017-12-21] MEDS: Sod Chloride 0.9% Inj 1,000 ML IV.CONT SCH (06:47)
[2017-12-21] MEDS: Senna/Docusate Sodium 8.6/50 MG Tablet PO SCH (08:52)
--- NOTE | 2017-12-21 09:25 | P.CONGI ---
History of Present Illness Consult date: 12/21/17 Consult reason: Elevated LFTs Chief complaint: Cellulitis and Abscess History of Present Illness: This is a 42 yo M with PMH significant for biliary pancreatitis, IVDU with multiple abscesses, known history of Hepatitis C. Pt presented to the ER three days ago with complaints of abscesses, pt had recent hospitalization with I&D and cultures positive for MRSA, DCd home with abx, however was noncompliant. Our service has been consulted to evaluate pt for elevated LFTs. Pt reports known history of Hepatitis C multiple years ago but states he was told that he no longer had it after the initial diagnosis. Denies any other known liver disease. Pt is a current IV drug user, admits to heroin use, last use was last week. Denies any other illicit drugs, alcohol, nicotine use. Pt has multiple tattoos. Pt denies more than occasional use of Tylenol. Denies any other OTC medications, herbs, supplements. Denies family history of liver issues. Denies nausea, vomiting, abdominal pain, weight loss, changes in bowel habits, acid reflux, heartburn. Review of Systems Gastrointestinal: Denies abdominal pain, Denies change in bowel habits, Denies nausea, Denies vomiting PMFSH - History History Provided By: Patient - Tobacco History Second Hand Smoke Exposure: No Smoking Status: Never smoker - Alcohol History How Often Do You Have a Drink Containing Alcohol: Never - Substance Use History Substance History: Active Abuse - Substance Use Type Methamphetamine Type: heroin Status: Active Route Used: Intravenously Frequency: DAILY Last Used: 2 days ago Reason for Use: Fit In - Travel History Recent Travel in the [place] Within the Last 8 Weeks: No Recent Travel Out of the Country Within the Last 8 Weeks: No - Immunization History Tetanus Immunization: Unsure Hx Influenza Vaccine This Season: No Medications and Allergies Active Medications: Active Medications Al Hydroxide/Mg Hydroxide (Milk Of Magnesia Liq) 30 ml PO Q12H PRN PRN Reason: Mild Constipation Bisacodyl (Dulcolax Supp) 10 mg RECTAL DAILY PRN PRN Reason: SEVERE CONSITIPATION Sodium Chloride (Ns Inj) 1,000 mls @ 100 mls/hr IV.CONT .Q10H SHANELL Last Admin: 12/21/17 06:47 Dose: 100 mls/hr Clindamycin/Sodium Chloride (Cleocin 900 Mg/Ns Premix) 900 mg in 50 mls @ 100 mls/hr IV.SIG Q8H SHANELL Last Admin: 12/21/17 08:52 Dose: 100 mls/hr Lactulose (Lactulose Liq) 30 ml PO DAILY PRN PRN Reason: SEVERE CONSITIPATION Lorazepam (Ativan Inj) 1 mg IV.PUSH Q2H PRN PRN Reason: WITHDRAWAL/AGITATION Metoclopramide HCl (Reglan Inj) 5 mg IV.PUSH Q6HR PRN; Protocol PRN Reason: NAUSEA OR VOMITING Oxycodone HCl (Roxicodone) 5 mg PO Q4H PRN PRN Reason: PAIN 3-5 Oxycodone HCl (Roxicodone) 10 mg PO Q4H PRN PRN Reason: PAIN 6-10 Last Admin: 12/20/17 22:02 Dose: 10 mg Senna/Docusate Sodium (Padmini-Colace) 1 tab PO BID [facility] Last Admin: 12/21/17 08:52 Dose: Not Given Sennosides (Senokot) 17.2 mg PO Q12H PRN PRN Reason: Moderate Constipation Allergies Allergy/AdvReac Type Severity Reaction Status Date / Time *MDRO Multi-Drug Resistant AdvReac Unknown Uncoded 11/26/17 23:50 Organism Home Medications Medication Instructions Recorded Confirmed Type No Known Home Medications 12/18/17 12/18/17 History Exam Vital signs: Vital Signs 12/20/17 11:45 12/20/17 16:00 12/20/17 19:28 Temperature 98.0 F 98.7 F 98.2 F Pulse Rate 67 63 66 Respiratory Rate 14 14 18 Blood Pressure 111/63 124/63 117/67 Pulse Oximetry 98 100 96 12/21/17 00:08 12/21/17 00:24 12/21/17 04:25 Temperature 98.1 F 98.1 F Pulse Rate 65 65 Respiratory Rate 18 16 18 Blood Pressure 115/65 116/68 Pulse Oximetry 95 95 12/21/17 07:15 12/21/17 07:30 Temperature 97.8 F Pulse Rate 66 Respiratory Rate 12 18 Blood Pressure 126/69 Pulse Oximetry Intake & Output 12/20/17 12/21/17 12/21/17 18:59 06:59 18:59 Intake Total 1290 / 1290 2049 50 / 50 Balance 1290 / 1290 2049 50 / 50 Intake: IV 1050 / 1050 2049 50 / 50 NS Inj 1,000 ML @ 100 mls/hr IV 1000 / 1000 1999 .CONT .Q10H SHANELL Rx#:[id number] Cleocin 900 mg/NS Premix 900 mg 50 / 50 50 / 50 50 / 50 In 50 ml @ 100 mls/hr IV.SIG Q8H SHANELL Rx#:[id number] Oral 240 / 240 Other: # Voids 525 - Constitutional no acute distress - Routine HEENT Exam Head: Present: normocephalic, atraumatic - Routine Respiratory Exam Absent: accessory muscle use - Routine Cardiovascular Exam Present: RRR - Routine Abdominal Exam Present: soft, normoactive bowel sounds. Absent: tenderness, distended, rebound , guarding, firm - Routine Skin Exam Present: dry, warm - Routine Neurological Exam Present: alert, oriented X3 Results - Labs CBC & Chem 7: 12/19/17 06:03 12/19/17 06:03 Assessment and Plan (1) Hepatitis C antibody positive in blood Status: Acute Code(s): R76.8 - Other specified abnormal immunological findings in serum (2) Hepatitis B Status: Acute Code(s): B19.10 - Unspecified viral hepatitis B without hepatic coma (3) IVDU (intravenous drug user) Status: Acute Code(s): F19.90 - Other psychoactive substance use, unspecified , uncomplicated (4) Elevated LFTs Status: Acute Code(s): R94.5 - Abnormal results of liver function studies - Plan Assessment: - Elevated LFTs On admission (12/18) AST-[id number] ALT-1364 Alk phos-208 T bili-2.9 Hepatitis C IgG antibody positive, Hep Bs antigen reactive. Risk factors: Current IVDU- admits to heroin use last week- denies any other illicit drugs. Multiple tattoos. Denies ETOH, new prescription or OTC meds, herbs and supplements, more than occasional Tylenol use. Denies family history of liver issues. States he was told he had Hepatitis C multiple years ago but reports they told him he didn't have it any longer after the initial diagnosis. Pt unsure of history of Hepatitis B. Liver US (12/19) Splenomegaly. S/P cholecystectomy, borderline liver enlargement, no evidence of biliary obstructive disease or acute process. Plan: Hep C genotype and quant Hep B DNA quant Counseled on drug cessation Monitor LFTs Avoid hepatotoxins Ammonia level Further recommendations based on clinical course Pt has been seen and examined by myself and Dr. Voss and this note is written on his behalf
--- NOTE | 2017-12-21 15:10 | P.PN ---
Subjective Interval history: Patient seen at 1025hrs. Follow up for abscess, transaminitis. The patient states he needs to get out of the hospital today. He does not further explain himself, just states he needs to leave. He states his abscess is almost resolved. Discussed importance of him waiting for antibiotic recommendations. Also discussed his liver enzymes and labs positive for Hep B/C. The patient states he knows he has hepatitis C and there's nothing we can do about it. Explained to him that he could be in acute hepatitis, potentially acute liver failure that could cause , however patient states he still needs to leave. He is AAOx4. He immediately called a ride and he left AGAINST MEDICAL ADVICE around noon. Physical Exam Vital signs: Vital Signs 12/20/17 16:00 12/20/17 19:28 12/21/17 00:08 Temperature 98.7 F 98.2 F 98.1 F Pulse Rate 63 66 65 Respiratory Rate 14 18 18 Blood Pressure 124/63 117/67 115/65 Pulse Oximetry 100 96 95 12/21/17 00:24 12/21/17 04:25 12/21/17 07:15 Temperature 98.1 F Pulse Rate 65 Respiratory Rate 16 18 12 Blood Pressure 116/68 Pulse Oximetry 95 12/21/17 07:30 12/21/17 11:03 Temperature 97.8 F Pulse Rate 66 Respiratory Rate 18 12 Blood Pressure 126/69 Pulse Oximetry Intake & Output 12/20/17 12/21/17 12/21/17 18:59 06:59 18:59 Intake Total 1290 / 1290 2049 100 / 100 Balance 1290 / 1290 2049 100 / 100 Intake: IV 1050 / 1050 2049 100 / 100 NS Inj 1,000 ML @ 100 mls/hr IV 1000 / 1000 2000 / 2000 .CONT .Q10H SHANELL Rx#:[id number] Cleocin 900 mg/NS Premix 900 mg 50 / 50 50 / 50 100 / 100 In 50 ml @ 100 mls/hr IV.SIG Q8H SHANELL Rx#:[id number] Oral 240 / 240 Other: # Voids 525 Narrative: GENERAL: Well-nourished, well-developed middle aged male patient in [facility]. SKIN: Warm and dry. RUE forearm with erythematous edematous abscess without fluctuance. Multiple abscesses and ulcerations in various stages of healing throughout all extremities. HEENT: Normocephalic. Atraumatic. Pupils equal and round. Mucous membranes pink and moist. CARDIOVASCULAR: Regular rate and rhythm. No murmur appreciated. RESPIRATORY: No accessory muscle use. Clear to auscultation. Breath sounds equal bilaterally. GASTROINTESTINAL: Abdomen soft, non-tender, nondistended. Normoactive bowel sounds x4. MUSCULOSKELETAL: No obvious deformities. Extremities without clubbing, cyanosis , or edema. NEUROLOGICAL: Awake and alert. No obvious cranial nerve deficits. Motor grossly within normal limits. Moving all extremities spontaneously. Normal speech. PSYCHIATRIC: Calm mood; insight and judgment normal. Results - Labs CBC & Chem 7: 12/19/17 06:03 12/19/17 06:03 Microbiology 12/18/17 23:05 Blood - Peripheral Aerobic Blood Culture - Preliminary No growth in 3 days 12/18/17 23:05 Blood - Peripheral Anaerobic Blood Culture - Preliminary No growth in 3 days 12/18/17 23:10 Blood - Peripheral Aerobic Blood Culture - Preliminary No growth in 3 days 12/18/17 23:10 Blood - Peripheral Anaerobic Blood Culture - Preliminary No growth in 3 days 12/18/17 23:10 Abscess - Arm Gram Stain - Final 12/18/17 23:10 Abscess - Arm Wound Culture - Final Group A beta (Strep pyogenes) Assessment and Plan - Assessment (1) Abscess Code(s): L02.91 - Cutaneous abscess, unspecified Status: Acute (2) IVDU (intravenous drug user) Code(s): F19.90 - Other psychoactive substance use, unspecified, uncomplicated Status: Acute (3) Elevated LFTs Code(s): R94.5 - Abnormal results of liver function studies Status: Acute - Plan 42-year-old male with a PMH of IVDU who presented to the ER w/ multiple abscesses. Previous ER presentation for same on 12/02/17, s/p I&D w/ cultures + MRSA, d/c'd w/ Bactrim and Keflex however non-compliant w/ antibiotics. States he recently got out of senior care and relapsed, started using IV drugs, noted RUE abscess after injecting, followed by multiple other abscesses. Abscess: multiple abscesses on all extremities in various stages of healing, new abscess at RUE. -h/o MRSA s/p I&D 11/26/17 -repeat wound culture 12/18 with group a strep -Consult ID, appreciate assistance -given IV Vanco, transitioned to IV clinda on 12/19 per ID -pain control with oxycodone prn Elevated LFTs: increased in comparison to previous labs from 11/26/17, likely secondary to drug abuse, rule out acute hepatitis -hepatitis panel +hepatitis B antigen and hepatitis C ab -tylenol level wnl -monitor CMP -consult gastroenterology, appreciate assistance, patient leaving AMA prior to completing work up IVDU: ongoing -Counseled on cessation, patient [facility] -Ativan prn for withdrawal/agitation DVT Prophylaxis: SCD/Teds Discharge Planning: Patient Kennedy Yi has decided to leave the hospital AGAINST MEDICAL ADVICE. This patient has the capacity to refuse care and understands the risks of leaving, including permanent disability and/or , and has had an opportunity to ask questions about his/her condition. The patient has been informed that he may return for care at any time, and follow up has been arranged/advised.
== END 2017-12-21 16:14 | disposition left against medical advice (07) ==
LOC: NEDA 15:47 → NEPE 15:47 → NEPHCDU 15:47 → NEDH 12-19 03:59 → NEPHCDU 12-19 14:45
PROVIDERS: ADMIT Internal Medicine; ATTEND Internal Medicine
DX: Z59.0 Homelessness; Z91.14 Patient's other noncompliance with medication regimen; Z87.891 Personal history of nicotine dependence; F11.10 Opioid abuse, uncomplicated; Z86.14 Personal history of Methicillin resistant Staphylococcus aureus infection; B19.20 Unspecified viral hepatitis C without hepatic coma; L02.413 Cutaneous abscess of right upper limb; R40.0 Somnolence; R79.89 Other specified abnormal findings of blood chemistry; R16.2 Hepatomegaly with splenomegaly, not elsewhere classified; L03.119 Cellulitis of unspecified part of limb